=== PATIENT | female | born 1980 | race African-American/Black ===

== ENCOUNTER 2017-02-26 04:54 | Inpatient (IN) | payer OTHER ==
[~2017-02-26] VITALS: Ht 167.6 cm; Wt 114.5 kg
[2017-02-26] VITALS (7 sets, daily range): BP systolic 114–139; BP diastolic 76–88
[~2017-02-26 04:54] MED LIST: IRON325 M1 PO; PEPCID20 MG PO; PRENATAL TABLE1 EAC3 PO; TUMS500 MG PO
[2017-02-26 05:57] LABS: EOSINOPHIL (%) 1.8 % (0-5); EOSINOPHIL COUNT 0.1 K/uL (0-0.3); HEMATOCRIT 35.7 % (36.0-46.0); IMMATURE GRANULOCYTE (%) 1.4 % (0.0-0.7); IMMATURE GRANULOCYTE COUNT 0.1 K/uL; INSTRUMENT ABS NEUTROPHIL CT 2.3 K/uL; MCH 29.3 PG (29.0-34.0); MCHC 33.1 G/DL (30.0-36.0); MCV 88.6 FL (83-99); MEAN PLAT.VOLUME 11.4 uM^3 (9.5-12.4); MONOCYTE (%) 12.3 % (3-12); MONOCYTE COUNT 0.6 K/uL (0-0.8); NEUTROPHIL (%) 45.5 % (45-76); NEUTROPHIL COUNT 2.3 K/uL (1.8-6.4); NRBC (%) 0.4 /100 WBC (0-0); PLATELET COUNT 115 K/uL (156-360); RBC DIS.WIDTH-CV 12.8 % (11.8-14.6); RBC DIS.WIDTH-SD 41.6 % (39-53); RED BLOOD COUNT 4.03 M/uL (3.80-5.20); WHITE BLOOD COUNT 5.1 K/uL (4.1-10.2)
[2017-02-27 07:25] LABS: EOSINOPHIL (%) 1.5 % (0-5); EOSINOPHIL COUNT 0.1 K/uL (0-0.3); HEMATOCRIT 36.6 % (36.0-46.0); IMMATURE GRANULOCYTE (%) 0.4 % (0.0-0.7); INSTRUMENT ABS NEUTROPHIL CT 6.7 K/uL; LYMPHOCYTE COUNT 1.9 K/uL (1.0-2.8); MCH 29.5 PG (29.0-34.0); MCHC 33.1 G/DL (30.0-36.0); MCV 89.3 FL (83-99); MEAN PLAT.VOLUME 12.4 uM^3 (9.5-12.4); MONOCYTE (%) 8.6 % (3-12); MONOCYTE COUNT 0.8 K/uL (0-0.8); NEUTROPHIL (%) 69.6 % (45-76); NEUTROPHIL COUNT 6.7 K/uL (1.8-6.4); PLATELET COUNT 139 K/uL (156-360); RBC DIS.WIDTH-SD 42.6 % (39-53); WHITE BLOOD COUNT 9.6 K/uL (4.1-10.2)
[2017-02-27 07:45] VITALS: BP 117/67
[2017-02-27 11:10] VITALS: BP 119/77
[2017-02-27 15:23] VITALS: BP 128/80
[2017-02-28 07:40] VITALS: BP 132/86
[2017-02-28 15:21] VITALS: BP 153/77
[2017-02-28 16:18] VITALS: BP 156/92
[2017-02-28 17:15] LABS: ANION GAP 6 MEQ/L (2-14); CHLORIDE 105 MEQ/L (99-109); POTASSIUM 3.6 MEQ/L (3.7-5.4); SAMPLE HEMOLYSIS CHECK 0; SAMPLE ICTERIC CHECK 0; SAMPLE LIPEMIA CHECK 0; SODIUM 137 MEQ/L (136-147); TOTAL BILIRUBIN 0.2 MG/DL (0.0-1.0)
[2017-02-28 17:21] LABS: ALKALINE PHOSPHATASE 66 IU/L (3-129); GFR ESTIMATE (CALCULATED) > 59 mL/min/; GLUCOSE 102 mg/dL (70-99); LACTATE DEHYDROGENASE 150 IU/L (20-246); UREA NITROGEN (BUN) 10 mg/dL (9-23); URIC ACID 5.4 mg/dL (3.1-9.2)
[2017-02-28 17:26] LABS: HEMATOCRIT 31.3 % (36.0-46.0); MCH 29.1 PG (29.0-34.0); MCHC 32.3 G/DL (30.0-36.0); MCV 90.2 FL (83-99); MEAN PLAT.VOLUME 11.5 uM^3 (9.5-12.4); PLATELET COUNT 115 K/uL (156-360); RBC DIS.WIDTH-CV 13.1 % (11.8-14.6); RBC DIS.WIDTH-SD 42.9 % (39-53); RED BLOOD COUNT 3.47 M/uL (3.80-5.20); WHITE BLOOD COUNT 8.1 K/uL (4.1-10.2)
[2017-02-28 19:25] VITALS: BP 141/91
[2017-02-28 22:57] VITALS: BP 138/88
[2017-03-01 03:07] VITALS: BP 138/88
[2017-03-01 07:30] VITALS: BP 144/90
[2017-03-01 11:02] VITALS: BP 144/90
[2017-03-01] MEDS ORDERED: NIFEDIPINE ER30 MG PO (12:01)
[2017-03-01] MEDS ORDERED: HYDROCODON-ACE1 EAC7 PO (12:01)
[2017-03-01] MEDS ORDERED: IBUPROFEN800 MG PO (12:01)
== END 2017-03-01 14:40 | disposition home or self-care (01) | DRG 765 ==
LOC: 2WEST 04:54 → 2SOUTH 10:20 → 2WEST 03-01 14:40
PROVIDERS: Obstetrics & Gynecology; Obstetrics & Gynecology Obstetrics
DX: O13.4 Gestational [pregnancy-induced] hypertension without significant proteinuria, complicating childbirth (principal); D62 Acute posthemorrhagic anemia; Z30.2 Encounter for sterilization; O99.02 Anemia complicating childbirth; O16.5 Unspecified maternal hypertension, complicating the puerperium; D25.9 Leiomyoma of uterus, unspecified; O34.13 Maternal care for benign tumor of corpus uteri, third trimester; Z37.0 Single live birth; Z3A.39 39 weeks gestation of pregnancy; G47.00 Insomnia, unspecified; O99.354 Diseases of the nervous system complicating childbirth; Z90.49 Acquired absence of other specified parts of digestive tract; O34.211 Maternal care for low transverse scar from previous cesarean delivery
CPT/HCPCS: 80053; 83615; 84550; 85025; 85027; 86850; 86900; 86901; 88302; J0131; J0690; J1200; J1885; J2175; J2274; J2405; J2590; J3010; J7050; J7120